=== PATIENT | female | born 1990 | race Caucasian/White ===

== ENCOUNTER 2023-10-29 13:28 | Emergency (ER) | payer MEDICAID ==
[~2023-10-29] VITALS: Ht 157.5 cm; Wt 65.9 kg
[2023-10-29 14:15] VITALS: BP 116/77
[2023-10-29] MEDS ORDERED: LEVOTHYROXINE100 MC1 PO (14:23)
[2023-10-29] MEDS ORDERED: MUPIROCIN CALCIUM2% TP (14:49)
== END 2023-10-29 14:53 | disposition home or self-care (01) ==
LOC: ED 13:28
DX: T63.331A Toxic effect of venom of brown recluse spider, accidental (unintentional), initial encounter (principal)